=== PATIENT | female | born 1950 | race Two or more races ===

== ENCOUNTER 2018-06-11 05:50 | Day surgery (SDC) | payer OTHER ==
[~2018-06-11 05:50] MED LIST: AMILORIDE HCL5 MG PO; CLOPIDOGREL BIS75 MG PO; LOSARTAN-HCTZ1 EAC1 PO; METOPROLOL SUCC50 MG PO
== END 2018-06-11 14:20 | disposition home or self-care (01) ==
LOC: CIR.AMB 05:50 → EDSTATUS 08:00 → SURH 08:00 → CIR.AMB 08:00
DX: K80.10 Calculus of gallbladder with chronic cholecystitis without obstruction (principal)

== ENCOUNTER 2018-09-15 08:12 | Outpatient (CLI) | payer OTHER | END 2018-09-15 08:56 | disposition home or self-care (01) | LOC: LAB 08:12 | DX: D64.89 Other specified anemias (principal); N36.8 Other specified disorders of urethra; D68.8 Other specified coagulation defects; N39.0 Urinary tract infection, site not specified; E11.9 Type 2 diabetes mellitus without complications; E03.8 Other specified hypothyroidism; E78.2 Mixed hyperlipidemia; Z01.811 Encounter for preprocedural respiratory examination ==

== ENCOUNTER 2019-01-30 09:10 | Outpatient (CLI) | payer OTHER | END 2019-01-30 09:26 | disposition home or self-care (01) | LOC: LAB 09:10 | DX: I11.9 Hypertensive heart disease without heart failure (principal); E78.2 Mixed hyperlipidemia; E03.4 Atrophy of thyroid (acquired); D64.89 Other specified anemias ==